=== PATIENT | female | born 2005 | race African-American/Black ===

== ENCOUNTER 2023-04-25 22:20 | Emergency (ER) | payer OTHER, SELFPAY ==
[2023-04-25 22:23] VITALS: BP 134/78; PULSE 77; RESP 17; TEMP 36.4; O2SAT 100
--- NOTE | 2023-04-25 23:20 | ED.FEMALEGU ---
HPI - Female Genitourinary General Chief complaint: Urogenital-Female Stated complaint: bumps on vaginal area Time Seen by Provider: 04/25/23 23:08 History of Present Illness HPI Narrative: 17-year-old female who is currently 21 weeks reports for evaluation of genital lesions that started today. Patient states 2 months ago she was treated for gonorrhea, chlamydia and trichomonas. When she reported back 1 month later to her [employer] [facility], she again tested positive for chlamydia, gonorrhea and syphilis. She reported taking all her medications as directed. She had an appointment with her [employer] [facility] today and had an ultrasound performed which showed no abnormalities of the fetus. States after her ultrasound appointment, she noticed spots to her labia that are painful when she wipes. She denies dysuria, urinary frequency or urgency, vaginal bleeding, abdominal pain or cramping, fever, body aches or chills, nausea or vomiting, diarrhea. Denies history of HSV. She reports she was tested again today for STDs at her [facility] [facility] [facility], she has not heard back yet regarding her results. Related Data Allergies Allergy/AdvReac Type Severity Reaction Status Date / Time No Known Allergies Allergy Verified 04/26/23 00:17 Review of Systems Review of Systems: CONSTITUTIONAL: Denies fever, chills EYES: Denies visual changes, redness, or discharge. ENT: Denies rhinorrhea, congestion, sore throat, or otalgia. CARDIOVASCULAR: Denies chest pain, palpitations, or edema. RESPIRATORY: Denies cough or dyspnea. GASTROINTESTINAL: Denies abdominal pain, nausea, vomiting, or diarrhea. GENITOURINARY: See HPI SKIN: Denies rash or itching. MUSCULOSKELETAL: Denies back pain, joint pain, or myalgia. NEUROLOGIC: Denies headache, numbness, dizziness, or weakness. PSYCHIATRIC: Denies anxiety or depression. Exam Narrative: GENERAL: Well-appearing, in no acute distress. HEAD: Normocephalic NECK: Supple. CHEST: No respiratory distress. Clear to auscultation, no adventitious breath sounds. HEART: Regular rate and rhythm. No murmur heard. Normal peripheral pulses. ABDOMEN: Soft, nontender, normal active bowel sounds. Gravid abdomen. : Multiple vesicles and shallow ulcerations to labia minora. No lesions to vaginal canal or cervix. Cervical Os closed. No CMT. EXTREMITIES: Normal range of motion. No edema. SKIN: Warm, dry, no rash. NEURO: No focal deficits. Alert and oriented x3. PSYCH: Normal mood and affect. Course Vital Signs Vital signs: Vital Signs Temperature 97.5 F L 04/25/23 22:23 Pulse Rate 77 04/25/23 22:23 Respiratory Rate 17 04/25/23 22:23 Blood Pressure 134/78 04/25/23 22:23 Pulse Oximetry 100 04/25/23 22:23 Oxygen Delivery Room Air 04/25/23 22:23 Temperature 97.7 F 04/26/23 00:30 Pulse Rate 67 04/26/23 00:30 Respiratory Rate 14 04/26/23 00:30 Blood Pressure 119/75 04/26/23 00:30 Pulse Oximetry 100 04/26/23 00:30 Oxygen Delivery Room Air 04/25/23 22:23 MDM - Female Genitourinary MDM Narrative Medical decision making narrative: 17-year-old female who is currently 21 weeks reports for evaluation of genital lesions that started today. She was seen by her [employer] [facility] earlier today and was tested for STDs, labs pending. Vital stable. Bedside ultrasound performed shows good movement, heart rate of 138. Exam reveals multiple vesicles and shallow ulcers to the labia minora consistent with HSV. Genital culture pending. First dose of acyclovir provided in the ED and acyclovir sent to pharmacy. Encouraged safe sex practices and advised patient to follow-up with her [employer] [facility] within the next 3 days for reevaluation and to follow-up regarding her STD tests. Strict ED return precautions discussed. Patient agrees with plan verbalized understanding. Discharged in stable condition. Medical Records Attestation: I reviewed the patient's medical records. Lab Data Attestation: I reviewed the patient
[2023-04-26] MEDS: ACYCLOVIR 400 MG TABLET PO (00:26)
[2023-04-26 00:30] VITALS: BP 119/75; PULSE 67; RESP 14; TEMP 36.5; O2SAT 100
== END 2023-04-26 00:42 | disposition home or self-care (01) ==
PROVIDERS: Emergency Provider Physician Assistant
DX: O98.312 Other infections with a predominantly sexual mode of transmission complicating pregnancy, second trimester (principal); A60.04 Herpesviral vulvovaginitis; Z3A.19 19 weeks gestation of pregnancy
CPT/HCPCS: 87070; 99284; A9270

== ENCOUNTER 2023-06-29 18:08 | Observation (INO) | payer OTHER, SELFPAY ==
[2023-06-29 19:52] VITALS: BMI 23.9
--- NOTE | 2023-06-29 19:52 | OBADM ---
This patient, Sanya Allen, admitted to the OB room OB Post 115 for observation. Patient/family oriented to hospital policies and general routines including ID bracelet, bed and alarms, visiting hours, pain management, procedures, bathroom and other care routines, personal items, smoking policy, room service/diet, and visiting hours. Patient/Family are encouraged to report perceived risks to care and to ask questions if they do not understand what they are told or what they should do.
[2023-06-29 20:01] LABS: Appearance Urine Turbid (Clear); Bacteria Urine Rare /hpf; Bilirubin Urine Negative (Negative); Blood Urine 3+ (Negative); Color Urine Yellow (Yellow); Glucose Urine UA Negative (Negative); Ketones Urine Negative (Negative); Leukocyte Esterase Ur 3+ LEU/UL (Negative); Need Manual Microscopic Reviewed; Nitrate Urine Negative (Negative); Non Pathogenic Casts 0-2; Protein Urine Trace mg/dL (Negative); Specific Grav Ur 1.007 (1.001-1.035); Squamous Epithelial Cell Urine Many /hpf (Few); Urobilinogen Urine 0.2 mg/dL (<2.0); WBC Urine >100 /hpf; pH Urine 6.5 (5.0-9.0)
[2023-06-29 20:04] LABS: Add Urine Microscopic? YES
[2023-06-29] MEDS: NITROFURANTOIN MONOHYD MACROCR 100 MG CAP PO (20:29)
--- NOTE | 2023-06-29 20:35 | PC.NURSE ---
Abby Craig notified of pt status, instructed to send urine. Abby Craig notified of pt status and lab results, instructed to discharge patient with prescription and precautions.
--- NOTE | 2023-06-29 20:37 | PC.NURSE ---
FHR 135, 15x15 accelerations noted, no decelerations, moderate variability, no contractions per patient or toco
--- NOTE | 2023-06-30 15:50 | PM.OBTRLD ---
OB - Triage/Final Diagnosis Visit Information Date of evaluation: 06/29/23 Reason for evaluation: other (spotting) Comments/Additional reasons for admission: I have assessed the risk for this patient, Sanya Allen, and determined that she would benefit from observation care. Evaluation Laboratory results: Laboratory Tests 06/29/23 19:38 Urine Color Yellow Urine Appearance Turbid H Urine pH 6.5 Ur Specific [place] 1.007 Urine Protein Trace Urine Glucose (UA) Negative Urine Ketones Negative Ur Blood (Man) 3+ H Urine Nitrate Negative Urine Bilirubin Negative Urine Urobilinogen 0.2 Add Ur Microanalysis Reviewed Leukocyte Esterase Rfl 3+ H Urine RBC 6-10 H Urine WBC >100 H Ur Squamous Epith Cells Many H Urine Bacteria Rare Urine Casts 0-2
== END 2023-06-29 20:33 | disposition home or self-care (01) ==
PROVIDERS: Advanced Practice Midwife; Admitting Provider Obstetrics & Gynecology; Visit Provider Obstetrics & Gynecology
DX: O26.853 Spotting complicating pregnancy, third trimester (principal); Z3A.30 30 weeks gestation of pregnancy
CPT/HCPCS: 81001; 87086; 87088; A9270; G0378; G0379

== ENCOUNTER 2023-07-30 14:40 | Inpatient (IN) | payer OTHER, SELFPAY ==
[2023-07-30] VITALS (118 sets, daily range): BP systolic 109–178; BP diastolic 59–116; PULSE 50–110; RESP 16–20; TEMP 36.6–36.9; O2SAT 77–100; BMI 24.7
--- NOTE | ~2023-07-30 | US_ITS ---
EXAMINATION: US OB follow up w [facility] DATE: 07/30/2023 15:56 INDICATION: Hypertension during third trimester . Assess biophysical profile, growth a nd amniotic fluid index. TECHNIQUE: Real-time pelvic ultrasound was performed. The interpreting radiologist was not present fo r the study. COMPARISON: None. FINDINGS: There is a single living fetus in vertex presentation. The placenta is anterior. heart rate is 131 beats per minute (bpm). Normal amniotic fluid index of 14.1 cm. The following biometric data were obtained: BPD: 9.1 cm -> 36 weeks 6 days Head circumference: 32.0 cm -> 36 weeks 0 days Abdominal circumference: 30.1 cm -> 34 weeks 1 days Femur length: 6.5 cm -> 33 weeks 2 days The femur length to biparietal diameter ratio is slightly below the 5th percentile. These measurements are otherwise concordant. Head circumference to abdominal circumference ratio: 1.06 (normal range 0.93-1.11). Estimated weight: 2404 g (+/-) 361 g, 5 lbs 5 oz (+/-) 13 oz Biophysical profile performed by the technologist: breathing (30 sec sustained breathing in 30 minutes): 2 out of 2 movement (3 gross body movements in 30 minutes): 2 out of 2 tone (one episode of kfwupgx-ftbwzgkny-kfeyhoc limb movement): 2 out of 2 Amniotic fluid pocket (2 cm): 2 out of 2 Total score: 8 out of 8 IMPRESSION: 1. Single living fetus in vertex presentation with heart rate of 131 bpm. 2. Biophysical profile 8 out of 8. 3. Normal amniotic fluid index of 14.1 cm. 4. Gestational age by ultrasound of 35 weeks 1 day(s) +/- 2 weeks and 3 days with ultrasound estimat ed date of delivery (CHHAYA) of 09/02/2023. Estimated weight is 28th percentile by Hadlock criteri a when 09/03/2023 is used as the CHHAYA. Please correlate with clinical information or earlier ultrasoun ds for most accurate CHHAYA. 5. Femur length to biparietal diameter ratio slightly below the 5th percentile. Reviewed, dictated and finalized at location A. IMPRESSION: 1. Single living fetus in vertex presentation with heart rate of 131 bpm. 2. Biophysical profile 8 out of 8. 3. Normal amniotic fluid index of 14.1 cm. 4. Gestational age by ultrasound of 35 weeks 1 day(s) +/- 2 weeks and 3 days w ith ultrasound estimated date of delivery (CHHAYA) of 09/02/2023. Estimated weight is 28th percentile by Hadlock criteria when 09/03/2023 is used as the ED D. Please correlate with clinical information or earlier ultrasounds for most a ccurate CHHAYA. 5. Femur length to biparietal diameter ratio slightly below the 5th percentile.
--- NOTE | 2023-07-30 12:41 | OBADM ---
This patient, Sanya Allen, admitted to the OB room OB Post 117 for observation. Patient/family oriented to hospital policies and general routines including ID bracelet, bed and alarms, visiting hours, pain management, procedures, bathroom and other care routines, personal items, smoking policy, room service/diet, and visiting hours. Patient/Family are encouraged to report perceived risks to care and to ask questions if they do not understand what they are told or what they should do.
--- NOTE | 2023-07-30 13:00 | PC.NURSE ---
pt report taking her blood pressure today and being 153/112 at home. Pt also reports headache on and off the last few days. Pt denies blurred vision, pt denies noticing new swelling but states that her mother told her that her face looks more swollen than normal.
--- NOTE | 2023-07-30 13:18 | PC.NURSE ---
Dr Ramírez notified of pt arrival and blood pressures reported. Order received for 200mg PO Labetalol x1. Lab currently pending.
[2023-07-30 13:20] LABS: Basophils Percent Auto 0.2 % (0.2-1.2); Eosinophils Absolute Auto 0.1 K/mm3 (0-0.3); Eosinophils Percent Auto 0.7 % (0-4.4); Hemoglobin 11.6 g/dL (12.0-15.0); Immature Granulocyte Absolute 0.04 K/mm3 (0.00-0.031); Immature Granulocyte Percent A 0.5 % (0-0.5); Lymphocytes Absolute Auto 1.46 K/mm3 (0.9-3.2); Lymphocytes Percent Auto 17.8 % (18.3-44.2); Mean Corpuscular HGB Conc 32.2 g/dl (32-36); Mean Corpuscular Hemoglobin 30.1 pg (26-34); Mean Corpuscular Volume 93.5 fl (80-100); Monocytes Absolute Auto 1.2 K/mm3 (0.1-0.6); Neutrophils Absolute Auto 5.5 K/mm3 (1.3-6.7); Neutrophils Percent Auto 66.8 % (45.5-73.1); Platelet Count Result 315 k/mm3 (150-375); Red Blood Count 3.85 M/mm3 (4.2-5.4); Red Cell Distribution Width 14.5 % (11.5-14.5); White Blood Count 8.2 K/mm3 (4.5-10.0)
[2023-07-30 13:23] LABS: Appearance Urine Clear (Clear); Bacteria Urine None Seen /hpf; Bilirubin Urine Negative (Negative); Blood Urine Negative (Negative); Color Urine Yellow (Yellow); Glucose Urine UA Negative (Negative); Ketones Urine Negative (Negative); Leukocyte Esterase Ur 3+ LEU/UL (NEGATIVE); Nitrate Urine Negative (Negative); Non Pathogenic Casts 0-2; Protein Urine Negative (Negative); RBC Urine 0-2 /hpf (0-2); Specific Grav Ur 1.011 (1.001-1.035); Squamous Epithelial Cell Urine Few /hpf (Few)
[2023-07-30 13:25] LABS: Alanine Aminotransferase 17 U/L (6-35); Albumin Level 3.7 g/dL (3.7-5.6); Alkaline Phosphatase 157 U/L (45-116); Anion Gap 4 mmol/L (8-16); Aspartate Amino Transferase 21 U/L (14-36); Bilirubin,Total 0.4 mg/dL (0.2-1.3); Blood Urea Nitrogen 9 mg/dL (8-21); Calcium 8.8 mg/dL (8.9-10.7); Carbon Dioxide 26 mmol/L (22-30); Chloride 105 mmol/L (98-107); Estimated Glomerular Filt Rate > 60; Glucose 76 mg/dL (65-110); Potassium 3.9 mmol/L (3.4-5.0); Sodium 135 mmol/L (134-143); Uric Acid 6.1 mg/dL (3.0-5.9)
[2023-07-30] MEDS: LABETALOL HCL 100 MG TABLET 200 MG PO ×2 (13:26→14:32)
[2023-07-30 13:28] LABS: Add Urine Microscopic? YES; Creatinine Urine 120.6 mg/dL; Total Protein Urine Random 12 mg/dL
--- NOTE | 2023-07-30 14:32 | PM.IMHP ---
H&P: HPI History of Present Illness Date/Time: 07/30/23 14:32 Chief Complaint: Headache, elevated blood pressures Narrative: 17-year-old 1 at 34 weeks gestation who presented for elevated blood pressures. She is found to have markedly elevated blood pressures. Treatment was initiated. She was noticed in the office the other day to begin to have elevated pressures. Her face looks different. She did not report any increased swelling in her lower extremities. She reports good movement. There is a reassuring status. For labetalol was started orally. We are going to give her 20 mg dose labetalol IV and also an additional 200 of oral labetalol. Going to consider our ultrasound the baby for growth restriction associated with blood pressure concern. Laboratory evaluation is normal. PCR ratio was normal. Continue observation consider disposition after a lengthy period of observation. Review of Systems Review of Systems: All systems reviewed & are unremarkable except as noted in HPI and below Constitutional: Constitutional: Denies chills, Denies fatigue, Denies fever(s) and Denies weakness Eyes: Eyes: Denies blurry vision, Denies change in vision, Denies loss of peripheral vision, Denies loss of vision, Denies other visual disturbances and Denies eye pain ENT: Denies vertigo, Denies dizziness, Denies hearing loss, Denies mouth pain, Denies nasal obstruction, Denies neck mass and Denies neck pain Cardiovascular: Cardiovascular: Denies chest pain, Denies diaphoresis, Denies syncope, Denies leg edema and Denies dyspnea Respiratory: Respiratory: Denies chest congestion, Denies cough, Denies hemoptysis, Denies dyspnea and Denies wheezing Gastrointestinal: Gastrointestinal: Denies abdominal pain, Denies constipation, Denies diarrhea, Denies nausea and Denies vomiting Genitourinary: Genitourinary: Denies hematuria, Denies change in libido, Denies nocturia, Denies genital lesions, Denies flank pain and Denies urinary urgency Musculoskeletal: Musculoskeletal: Denies abnormal gait, Denies back pain, Denies myalgias, Denies arthralgias, Denies joint swelling, Denies muscle weakness and Denies neck pain Integumentary/Breasts: Skin/Breast: Denies swelling, Denies breast pain, Denies breast mass, Denies dry skin, Denies nipple discharge, Denies unusual bruising and Denies jaundice Neurologic: Denies Neuro-related abnormal movements, Denies Abnormal speech present, Denies abnormal gait, Denies behavioral changes, Denies confusion, Denies vertigo, Denies dizziness, Denies syncope, Denies loss of vision, Denies memory loss, Denies convulsions and Denies weakness Psychiatric: Psychiatric: Denies abnormal sleep pattern, Denies behavioral changes, Denies change in libido, Denies confusion, Denies depression, Denies anhedonia and Denies memory loss Endocrine: Endocrine: Reports no additional endocrine complaints, Denies change in libido and Denies fatigue Hematologic/Lymphatic: Hematologic/Lymphatic: Reports no additional hematologic/lymphatic complaints Allergic/Immunologic: Allergic/Immunologic: Reports no additional allergic/immunologic complaints and Denies wheezing Meds Home Medications and Allergies Home Medications Medication Instructions Recorded Confirmed Type nitrofurantoin 100 mg PO BID #14 caps 06/29/23 Rx monohydrate/macrocrystals 100 mg capsule (Macrobid) Allergies Allergy/AdvReac Type Severity Reaction Status Date / Time No Known Allergies Allergy Verified 04/26/23 00:17 Vital Signs Vital Signs - 24 hr 07/30/23 13:10 07/30/23 13:16 07/30/23 13:31 Pulse Rate 52 L 50 L 52 L Blood Pressure 166/113 H 163/108 H 161/106 H 07/30/23 13:46 07/30/23 14:01 07/30/23 14:16 Pulse Rate 56 L 54 L 70 Blood Pressure 168/103 H 178/105 H 151/101 H 07/30/23 14:31 07/30/23 13:26 Pulse Rate 62 50 L Blood Pressure 173/116 H Exam Const: General: cooperative, healthy appearing, comfortabl
[2023-07-30] MEDS: BETAMETHASONE SOD PHOS/ACETATE 30 MG/5 ML VIAL 12 MG IM (14:40)
[2023-07-30] MEDS: LACTATED RINGERS 1,000 ML 75 ML IV CONT (15:00)
[2023-07-30] MEDS: MAGNESIUM SULF 4 GM/WATER100ML 4 GM/100 ML BAG IVPB (15:01)
[2023-07-30] MEDS: LABETALOL HCL INJ 100 MG/20 ML VIAL 20 MG IV PUSH (15:04)
[2023-07-30] MEDS: MAGNESIUM SULF 20GM/WATER500ML 500 ML 50 MG IV CONT (15:34)
[2023-07-30 21:23] LABS: Basophils Percent Auto 0.2 % (0.2-1.2); Hematocrit 32.8 % (37.0-47.0); Hemoglobin 10.8 g/dL (12.0-15.0); Immature Granulocyte Absolute 0.09 K/mm3 (0.00-0.031); Immature Granulocyte Percent A 0.7 % (0-0.5); Lymphocytes Absolute Auto 0.77 K/mm3 (0.9-3.2); Lymphocytes Percent Auto 6.2 % (18.3-44.2); Mean Corpuscular HGB Conc 32.9 g/dl (32-36); Mean Corpuscular Hemoglobin 30.1 pg (26-34); Mean Corpuscular Volume 91.4 fl (80-100); Mean Platelet Volume 10.7 fl (7.4-10.4); Monocytes Absolute Auto 0.2 K/mm3 (0.1-0.6); Monocytes Percent Auto 1.4 % (2.6-8.5); Neutrophils Absolute Auto 11.5 K/mm3 (1.3-6.7); Neutrophils Percent Auto 91.5 % (45.5-73.1); Platelet Count Result 292 k/mm3 (150-375); Red Blood Count 3.59 M/mm3 (4.2-5.4); Red Cell Distribution Width 14.3 % (11.5-14.5); White Blood Count 12.5 K/mm3 (4.5-10.0)
[2023-07-30 21:39] LABS: Alanine Aminotransferase 18 U/L (6-35); Albumin Level 3.4 g/dL (3.7-5.6); Alkaline Phosphatase 162 U/L (45-116); Anion Gap 8 mmol/L (8-16); Aspartate Amino Transferase 19 U/L (14-36); Bilirubin,Total 0.2 mg/dL (0.2-1.3); Blood Urea Nitrogen 8 mg/dL (8-21); Calcium 8.1 mg/dL (8.9-10.7); Carbon Dioxide 22 mmol/L (22-30); Chloride 104 mmol/L (98-107); Estimated CRCL calculation 102 ml/min; Estimated Glomerular Filt Rate > 60; Glucose 102 mg/dL (65-110); Potassium 3.5 mmol/L (3.4-5.0); Sodium 134 mmol/L (134-143)
[2023-07-30 21:50] LABS: Uric Acid 6.6 mg/dL (3.0-5.9)
[2023-07-31] VITALS (320 sets, daily range): BP systolic 114–144; BP diastolic 59–106; PULSE 79–148; RESP 17; TEMP 36.3–36.6; O2SAT 70–100
[2023-07-31] MEDS: LABETALOL HCL 100 MG TABLET 400 MG PO ×3 (00:29→21:24)
[2023-07-31] MEDS: MAGNESIUM SULF 20GM/WATER500ML 500 ML 50 MG IV CONT ×2 (02:30→14:42)
[2023-07-31] MEDS: LACTATED RINGERS 1,000 ML 75 ML IV CONT ×2 (02:30→15:53)
--- NOTE | 2023-07-31 07:54 | PM.OBPNVD ---
OB - PN: Subj Subjective Date/time seen: 07/31/23 07:54 Interval history: Denies headache, blurry vision, epigastric pain. Denies onset of marked swelling / edema. Patient's family has noticed her face is more swollen. OB - PN: Obj Data Labs 07/30/23 21:07 07/30/23 21:07 Labs: Laboratory Results - last 24 hr 07/30/23 07/30/23 13:07 21:07 WBC 8.2 12.5 H RBC 3.85 L 3.59 L Hgb 11.6 L 10.8 L Hct 36.0 L 32.8 L MCV 93.5 91.4 MCH 30.1 30.1 MCHC 32.2 32.9 RDW 14.5 14.3 Plt Count 315 292 MPV 11.0 H 10.7 H Immature Gran % (Auto) 0.5 0.7 H Neut % (Auto) 66.8 91.5 H Lymph % (Auto) 17.8 L 6.2 L [place] % (Auto) 14.0 H 1.4 L Eos % (Auto) 0.7 0.0 Baso % (Auto) 0.2 0.2 Lymph # (Auto) 1.46 0.77 L [place] # (Auto) 1.2 H 0.2 Eos # (Auto) 0.1 0.0 Baso # (Auto) 0.0 0.0 Abs Immat Gran (auto) 0.04 H 0.09 H Absolute Neuts (auto) 5.5 11.5 H Absolute Nucleated RBC 0.0 0.0 Nucleated RBC % 0.0 0.0 Sodium 135 134 Potassium 3.9 3.5 Chloride 105 104 Carbon Dioxide 26 22 Anion Gap 4 L 8 BUN 9 8 Creatinine 0.90 0.90 Estim Creat Clear Calc Not Reportable 102 Estimated GFR > 60 > 60 Glucose 76 102 Uric Acid 6.1 H 6.6 H Calcium 8.8 L 8.1 L Total Bilirubin 0.4 0.2 AST 21 19 ALT 17 18 Alkaline Phosphatase 157 H 162 H Total Protein 7.0 7.0 Albumin 3.7 3.4 L Urine Color Yellow Urine Appearance Clear Urine pH 7.0 Ur Specific [place] 1.011 Urine Protein Negative Urine Glucose (UA) Negative Urine Ketones Negative Ur Blood (Man) Negative Urine Nitrate Negative Urine Bilirubin Negative Urine Urobilinogen 1.0 Ur Leukocyte Esterase 3+ H Urine RBC 0-2 Urine WBC 11-20 H Ur Squamous Epith Cells Few Urine Bacteria None seen Urine Casts 0-2 U Random Total Protein 12 Urine Creatinine 120.6 Protein/Creat Ratio 2 0.10 Imaging Radiologist's impression: Impressions Obstetrical Follow-Up 07/30/23 16:01 IMPRESSION: 1. Single living fetus in vertex presentation with heart rate of 131 bpm. 2. Biophysical profile 8 out of 8. 3. Normal amniotic fluid index of 14.1 cm. 4. Gestational age by ultrasound of 35 weeks 1 day(s) +/- 2 weeks and 3 days with ultrasound estimated date of delivery (CHHAYA) of 09/02/2023. Estimated weight is 28th percentile by Hadlock criteria when 09/03/2023 is used as the CHHAYA. Please correlate with clinical information or earlier ultrasounds for most accurate CHHAYA. 5. Femur length to biparietal diameter ratio slightly below the 5th percentile. OB - PN A/P Assessment and Plan (1) Gestational hypertension: Code(s): O13.9 - Gestational [-induced] hypertension without significant proteinuria, unspecified trimester Status: Acute Plan Comments: Thirty-four week gestation, 1, likely preeclampsia. Pressure is controlled with magnesium sulfate 400 of labetalol. We will continue with current treatment with Mag and labetalol. Consider delivery tomorrow, withdrawal magnesium sulfate tomorrow, observe pressures. Second dose of steroids today. Serial labs. Time Spent With Patient Time: Total time spent is greater than 50% in coordination of care (as documented) at patient's floor/unit and/or counseling patient: Review of Systems Review of Systems: All systems reviewed & are unremarkable except as noted in HPI and below Constitutional: Constitutional: Denies chills, Denies fatigue, Denies fever(s) and Denies weakness Eyes: Eyes: Denies blurry vision, Denies change in vision, Denies loss of peripheral vision, Denies loss of vision, Denies other visual disturbances and Denies eye pain ENT: Denies vertigo, Denies dizziness, Denies hearing loss, Denies mouth pain, Denies nasal obstruction, Denies neck mass and Denies neck pain Cardiovascular: Cardiovascular: Denies chest pain, Denies diaphoresis, Denies syncope, Denies leg tacos
[2023-07-31 08:46] LABS: Basophils Percent Auto 0.1 % (0.2-1.2); Hemoglobin 10.6 g/dL (12.0-15.0); Immature Granulocyte Absolute 0.11 K/mm3 (0.00-0.031); Immature Granulocyte Percent A 0.7 % (0-0.5); Lymphocytes Absolute Auto 1.12 K/mm3 (0.9-3.2); Lymphocytes Percent Auto 7.2 % (18.3-44.2); Mean Corpuscular HGB Conc 33.1 g/dl (32-36); Mean Corpuscular Hemoglobin 30.4 pg (26-34); Mean Corpuscular Volume 91.7 fl (80-100); Monocytes Percent Auto 6.2 % (2.6-8.5); Neutrophils Absolute Auto 13.4 K/mm3 (1.3-6.7); Neutrophils Percent Auto 85.8 % (45.5-73.1); Platelet Count Result 310 k/mm3 (150-375); Red Blood Count 3.49 M/mm3 (4.2-5.4); Red Cell Distribution Width 14.3 % (11.5-14.5); White Blood Count 15.6 K/mm3 (4.5-10.0)
[2023-07-31 09:02] LABS: Alanine Aminotransferase 18 U/L (6-35); Albumin Level 3.5 g/dL (3.7-5.6); Alkaline Phosphatase 175 U/L (45-116); Anion Gap 7 mmol/L (8-16); Aspartate Amino Transferase 22 U/L (14-36); Bilirubin,Total 0.3 mg/dL (0.2-1.3); Blood Urea Nitrogen 7 mg/dL (8-21); Calcium 7.6 mg/dL (8.9-10.7); Carbon Dioxide 21 mmol/L (22-30); Chloride 104 mmol/L (98-107); Estimated CRCL calculation 114 ml/min; Estimated Glomerular Filt Rate > 60; Glucose 91 mg/dL (65-110); Sodium 132 mmol/L (134-143); Uric Acid 6.8 mg/dL (3.0-5.9)
--- NOTE | 2023-07-31 09:31 | PC.NURSE ---
Dr. Ramírez updated on current labs and blood pressures. Order received to give pt her scheduled blood pressure medication. Order received to redraw labs and 8 hours and call with 24hour urine labs.
[2023-07-31] MEDS: BETAMETHASONE SOD PHOS/ACETATE 30 MG/5 ML VIAL 12 MG IM (14:38)
[2023-07-31 15:20] LABS: Total Volume 24 Hour Urine 3250 ml
[2023-07-31 15:21] LABS: Total Volume 24 Hour Urine 3250 ml
[2023-07-31 15:33] LABS: Total Protein Urine Random 18 mg/dL
[2023-07-31 15:35] LABS: Creatinine 24 Hour Urine 1.6 gm/24 (0.8-1.8); Creatinine Urine 49.5 mg/dL
[2023-07-31 15:40] LABS: Total Protein Urine 24 Hr 585 mg/24hr (28-141)
[2023-07-31 16:22] LABS: Basophils Percent Auto 0.1 % (0.2-1.2); Hematocrit 27.5 % (37.0-47.0); Hemoglobin 9.1 g/dL (12.0-15.0); Immature Granulocyte Absolute 0.09 K/mm3 (0.00-0.031); Immature Granulocyte Percent A 0.6 % (0-0.5); Lymphocytes Absolute Auto 1.12 K/mm3 (0.9-3.2); Lymphocytes Percent Auto 6.9 % (18.3-44.2); Mean Corpuscular HGB Conc 33.1 g/dl (32-36); Mean Corpuscular Hemoglobin 30.6 pg (26-34); Mean Corpuscular Volume 92.6 fl (80-100); Mean Platelet Volume 10.9 fl (7.4-10.4); Monocytes Absolute Auto 2.1 K/mm3 (0.1-0.6); Monocytes Percent Auto 12.9 % (2.6-8.5); Neutrophils Absolute Auto 12.9 K/mm3 (1.3-6.7); Neutrophils Percent Auto 79.5 % (45.5-73.1); Platelet Count Result 282 k/mm3 (150-375); Red Blood Count 2.97 M/mm3 (4.2-5.4); Red Cell Distribution Width 14.8 % (11.5-14.5); White Blood Count 16.2 K/mm3 (4.5-10.0)
[2023-07-31 16:32] LABS: Alanine Aminotransferase 16 U/L (6-35); Albumin Level 3.1 g/dL (3.7-5.6); Alkaline Phosphatase 136 U/L (45-116); Anion Gap 4 mmol/L (8-16); Aspartate Amino Transferase 20 U/L (14-36); Bilirubin,Total 0.2 mg/dL (0.2-1.3); Blood Urea Nitrogen 8 mg/dL (8-21); Calcium 7.1 mg/dL (8.9-10.7); Carbon Dioxide 23 mmol/L (22-30); Chloride 105 mmol/L (98-107); Estimated CRCL calculation 102 ml/min; Estimated Glomerular Filt Rate > 60; Glucose 102 mg/dL (65-110); Potassium 3.7 mmol/L (3.4-5.0); Sodium 132 mmol/L (134-143)
--- NOTE | 2023-07-31 18:41 | LDADM ---
This patient, Sanya Allen, was admitted to Labor/Delivery/Recovery 103 on 07/31/23 at 17:30. Plans for labor, pain management and were discussed with patient. Patient/family oriented to hospital policies and general routines including ID bracelet, bed and alarms, visiting hours, pain management, procedures, bathroom and other care routines, personal items, smoking policy, room service/diet and guest tray routines, security routines, and visiting hours. Patient/Family are encouraged to report perceived risks to care and to ask questions if they do not understand what they are told or what they should do. See OBIX for further documentation.
[2023-07-31] MEDS: AMPICILLIN 2 GM/NS 100 ML 2 GM/100 ML BAG IVPB (19:05)
[2023-07-31] MEDS: DINOPROSTONE 10 MG VAG INSERT VAGINAL (19:13)
[2023-07-31 19:33] LABS: Trichomonas Vag PCR DETECTED (NOT DETECTE)
--- NOTE | 2023-07-31 20:50 | PC.NURSE ---
2030- Dr. Ramírez called and updated on pts positive trich result. Order received to begin abx, swab for gonorrhea and chlamydia. 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 No new orders received.
[2023-07-31] MEDS: metroNIDAZOLE 250 MG TABLET 2000 MG PO (21:25)
[2023-07-31] MEDS: AMPICILLIN 1 GM/NS 50 ML 1 GM/50 ML BAG IVPB (23:23)
[2023-07-31 23:44] LABS: Chlamydia trachomatis DETECTED (NOT DETECTE); Neisseria gonorrhoeae PCR NOT DETECTED (NOT DETECTE)
[2023-08-01] VITALS (268 sets, daily range): BP systolic 109–159; BP diastolic 64–117; PULSE 65–129; RESP 18–20; TEMP 36.6–37.2; O2SAT 92–100
[2023-08-01 00:20] LABS: Basophils Percent Auto 0.2 % (0.2-1.2); Hematocrit 30.3 % (37.0-47.0); Hemoglobin 9.9 g/dL (12.0-15.0); Immature Granulocyte Absolute 0.13 K/mm3 (0.00-0.031); Immature Granulocyte Percent A 0.8 % (0-0.5); Lymphocytes Absolute Auto 0.74 K/mm3 (0.9-3.2); Lymphocytes Percent Auto 4.8 % (18.3-44.2); Mean Corpuscular HGB Conc 32.7 g/dl (32-36); Mean Corpuscular Hemoglobin 30.5 pg (26-34); Mean Corpuscular Volume 93.2 fl (80-100); Monocytes Absolute Auto 0.7 K/mm3 (0.1-0.6); Monocytes Percent Auto 4.6 % (2.6-8.5); Neutrophils Absolute Auto 13.9 K/mm3 (1.3-6.7); Neutrophils Percent Auto 89.6 % (45.5-73.1); Platelet Count Result 304 k/mm3 (150-375); Red Blood Count 3.25 M/mm3 (4.2-5.4); Red Cell Distribution Width 14.9 % (11.5-14.5); White Blood Count 15.5 K/mm3 (4.5-10.0)
[2023-08-01 00:36] LABS: Alanine Aminotransferase 17 U/L (6-35); Albumin Level 3.3 g/dL (3.7-5.6); Alkaline Phosphatase 155 U/L (45-116); Anion Gap 6 mmol/L (8-16); Aspartate Amino Transferase 22 U/L (14-36); Bilirubin,Total 0.2 mg/dL (0.2-1.3); Blood Urea Nitrogen 8 mg/dL (8-21); Calcium 6.9 mg/dL (8.9-10.7); Carbon Dioxide 22 mmol/L (22-30); Chloride 107 mmol/L (98-107); Estimated CRCL calculation 102 ml/min; Estimated Glomerular Filt Rate > 60; Glucose 113 mg/dL (65-110); Magnesium 6.8 mg/dL (1.6-2.3); Potassium 3.9 mmol/L (3.4-5.0); Sodium 135 mmol/L (134-143)
[2023-08-01] MEDS: MAGNESIUM SULF 20GM/WATER500ML 500 ML 50 MG IV CONT ×3 (01:30→21:02)
[2023-08-01] MEDS: DINOPROSTONE 10 MG VAG INSERT VAGINAL (01:40)
[2023-08-01] MEDS: AMPICILLIN 1 GM/NS 50 ML 1 GM/50 ML BAG IVPB ×3 (03:05→11:16)
[2023-08-01] MEDS: LACTATED RINGERS 1,000 ML 75 ML IV CONT ×2 (05:17→14:39)
--- NOTE | 2023-08-01 08:40 | PM.OBPNVD ---
OB - PN: Subj Subjective Date/time seen: 08/01/23 08:40 Interval history: Denies headache, blurry vision, epigastric pain. Denies onset of marked swelling / edema. Patient's family has noticed her face is more swollen. OB - PN: Obj Data Labs 08/01/23 00:02 08/01/23 00:02 Labs: Laboratory Results - last 24 hr 07/30/23 07/30/23 07/31/23 14:58 14:58 08:19 WBC 15.6 H RBC 3.49 L Hgb 10.6 L Hct 32.0 L MCV 91.7 MCH 30.4 MCHC 33.1 RDW 14.3 Plt Count 310 MPV 11.0 H Immature Gran % (Auto) 0.7 H Neut % (Auto) 85.8 H Lymph % (Auto) 7.2 L [place] % (Auto) 6.2 Eos % (Auto) 0.0 Baso % (Auto) 0.1 L Lymph # (Auto) 1.12 [place] # (Auto) 1.0 H Eos # (Auto) 0.0 Baso # (Auto) 0.0 Abs Immat Gran (auto) 0.11 H Absolute Neuts (auto) 13.4 H Absolute Nucleated RBC 0.0 Nucleated RBC % 0.0 Sodium 132 L Potassium 4.0 Chloride 104 Carbon Dioxide 21 L Anion Gap 7 L BUN 7 L Creatinine 0.80 Estim Creat Clear Calc 114 Estimated GFR > 60 Glucose 91 Uric Acid 6.8 H Calcium 7.6 L Magnesium Total Bilirubin 0.3 AST 22 ALT 18 Alkaline Phosphatase 175 H Total Protein 7.0 Albumin 3.5 L U Random Total Protein 18 Ur 24 Hour Volume 3250 3250 Urine Creatinine 49.5 Ur Creatinine 24 Hour 1.6 Ur Total Protein 24 Hr 585 H RPR C. trachomatis (PCR) N. gonorrhoeae (PCR) T. vaginalis (PCR) Blood Type Antibody Screen 07/31/23 07/31/23 07/31/23 16:00 18:18 18:19 WBC 16.2 H RBC 2.97 L Hgb 9.1 L Hct 27.5 L MCV 92.6 MCH 30.6 MCHC 33.1 RDW 14.8 H Plt Count 282 MPV 10.9 H Immature Gran % (Auto) 0.6 H Neut % (Auto) 79.5 H Lymph % (Auto) 6.9 L [place] % (Auto) 12.9 H Eos % (Auto) 0.0 Baso % (Auto) 0.1 L Lymph # (Auto) 1.12 [place] # (Auto) 2.1 H Eos # (Auto) 0.0 Baso # (Auto) 0.0 Abs Immat Gran (auto) 0.09 H Absolute Neuts (auto) 12.9 H Absolute Nucleated RBC 0.0 Nucleated RBC % 0.0 Sodium 132 L Potassium 3.7 Chloride 105 Carbon Dioxide 23 Anion Gap 4 L BUN 8 Creatinine 0.90 Estim Creat Clear Calc 102 Estimated GFR > 60 Glucose 102 Uric Acid 7.0 H Calcium 7.1 L Magnesium Total Bilirubin 0.2 AST 20 ALT 16 Alkaline Phosphatase 136 H Total Protein 6.0 L Albumin 3.1 L U Random Total Protein Ur 24 Hour Volume Urine Creatinine Ur Creatinine 24 Hour Ur Total Protein 24 Hr RPR Non-reactive C. trachomatis (PCR) Detected A N. gonorrhoeae (PCR) Not detected T. vaginalis (PCR) Detected A Blood Type A Positive Antibody Screen Negative 08/01/23 00:02 WBC 15.5 H RBC 3.25 L Hgb 9.9 L Hct 30.3 L MCV 93.2 MCH 30.5 MCHC 32.7 RDW 14.9 H Plt Count 304 MPV 11.0 H Immature Gran % (Auto) 0.8 H Neut % (Auto) 89.6 H Lymph % (Auto) 4.8 L [place] % (Auto) 4.6 Eos % (Auto) 0.0 Baso % (Auto) 0.2 Lymph # (Auto) 0.74 L [place] # (Auto) 0.7 H Eos # (Auto) 0.0 Baso # (Auto) 0.0 Abs Immat Gran (auto) 0.13 H Absolute Neuts (auto) 13.9 H Absolute Nucleated RBC 0.0 Nucleated RBC % 0.0 Sodium 135 Potassium 3.9 Chloride 107 Carbon Dioxide 22 Anion Gap 6 L BUN 8 Creatinine 0.90 Estim Creat Clear Calc 102 Estimated GFR > 60 Glucose 113 H Uric Acid 7.0 H Calcium 6.9 L Magnesium 6.8 H Total Bilirubin 0.2 AST 22 ALT 17 Alkaline Phosphatase 155 H Total Protein 7.0 Albumin 3.3 L U Random Total Protein Ur 24 Hour Volume Urine Creatinine Ur Creatinine 24 Hour Ur Total Protein 24 Hr RPR C. trachomatis (PCR) N. gonorrhoeae (PCR) T. vaginalis (PCR) Blood Type Antibody Screen OB - PN A/P Assessment and Plan (1) Chlamydia: Code(s): A74.9 - Chlamydial infection, unspecified Status: Acute (2) Preeclampsia, severe: Code(s):
[2023-08-01 08:42] LABS: Basophils Percent Auto 0.1 % (0.2-1.2); Hematocrit 32.3 % (37.0-47.0); Hemoglobin 10.4 g/dL (12.0-15.0); Immature Granulocyte Absolute 0.15 K/mm3 (0.00-0.031); Immature Granulocyte Percent A 0.8 % (0-0.5); Lymphocytes Absolute Auto 0.95 K/mm3 (0.9-3.2); Lymphocytes Percent Auto 5.3 % (18.3-44.2); Mean Corpuscular HGB Conc 32.2 g/dl (32-36); Mean Corpuscular Hemoglobin 30.1 pg (26-34); Mean Corpuscular Volume 93.4 fl (80-100); Mean Platelet Volume 10.5 fl (7.4-10.4); Monocytes Absolute Auto 1.5 K/mm3 (0.1-0.6); Monocytes Percent Auto 8.3 % (2.6-8.5); Neutrophils Absolute Auto 15.4 K/mm3 (1.3-6.7); Neutrophils Percent Auto 85.5 % (45.5-73.1); Platelet Count Result 316 k/mm3 (150-375); Red Blood Count 3.46 M/mm3 (4.2-5.4)
[2023-08-01 08:53] LABS: Alanine Aminotransferase 19 U/L (6-35); Albumin Level 3.6 g/dL (3.7-5.6); Alkaline Phosphatase 166 U/L (45-116); Anion Gap 6 mmol/L (8-16); Aspartate Amino Transferase 24 U/L (14-36); Bilirubin,Total 0.3 mg/dL (0.2-1.3); Blood Urea Nitrogen 8 mg/dL (8-21); Calcium 6.9 mg/dL (8.9-10.7); Carbon Dioxide 23 mmol/L (22-30); Chloride 106 mmol/L (98-107); Estimated CRCL calculation 102 ml/min; Estimated Glomerular Filt Rate > 60; Glucose 97 mg/dL (65-110); Magnesium 7.4 mg/dL (1.6-2.3); Potassium 3.9 mmol/L (3.4-5.0); Sodium 135 mmol/L (134-143); Uric Acid 7.1 mg/dL (3.0-5.9)
[2023-08-01] MEDS: AZITHROMYCIN 500 MG/NS 250 ML 500 MG/250 ML BAG 250 MG IVPB ×2 (09:06→10:08)
[2023-08-01] MEDS: OXYTOCIN 30 UNITS/NS 500 ML 30 UNITS/500 ML BAG 6 UNITS IV CONT (09:11)
[2023-08-01] MEDS: LABETALOL HCL 100 MG TABLET 400 MG PO ×2 (09:13→21:02)
[2023-08-01] MEDS: ONDANSETRON INJ 4 MG/2 ML VIAL IV PUSH (10:12)
--- NOTE | 2023-08-01 13:28 | PM.OBPNVD ---
OB - PN: Subj Subjective Date/time seen: 08/01/23 13:28 AROM preformed - clear fluid, 3-4/90/0. reassuring FHT's Interval history: Denies headache, blurry vision, epigastric pain. Denies onset of marked swelling / edema. Patient's family has noticed her face is more swollen. OB - PN: Obj Data Labs 08/01/23 08:36 08/01/23 08:36 Labs: Laboratory Results - last 24 hr 07/30/23 07/30/23 07/31/23 14:58 14:58 16:00 WBC 16.2 H RBC 2.97 L Hgb 9.1 L Hct 27.5 L MCV 92.6 MCH 30.6 MCHC 33.1 RDW 14.8 H Plt Count 282 MPV 10.9 H Immature Gran % (Auto) 0.6 H Neut % (Auto) 79.5 H Lymph % (Auto) 6.9 L [place] % (Auto) 12.9 H Eos % (Auto) 0.0 Baso % (Auto) 0.1 L Lymph # (Auto) 1.12 [place] # (Auto) 2.1 H Eos # (Auto) 0.0 Baso # (Auto) 0.0 Abs Immat Gran (auto) 0.09 H Absolute Neuts (auto) 12.9 H Absolute Nucleated RBC 0.0 Nucleated RBC % 0.0 Sodium 132 L Potassium 3.7 Chloride 105 Carbon Dioxide 23 Anion Gap 4 L BUN 8 Creatinine 0.90 Estim Creat Clear Calc 102 Estimated GFR > 60 Glucose 102 Uric Acid 7.0 H Calcium 7.1 L Magnesium Total Bilirubin 0.2 AST 20 ALT 16 Alkaline Phosphatase 136 H Total Protein 6.0 L Albumin 3.1 L U Random Total Protein 18 Ur 24 Hour Volume 3250 3250 Urine Creatinine 49.5 Ur Creatinine 24 Hour 1.6 Ur Total Protein 24 Hr 585 H RPR C. trachomatis (PCR) N. gonorrhoeae (PCR) T. vaginalis (PCR) Blood Type Antibody Screen 07/31/23 07/31/23 08/01/23 18:18 18:19 00:02 WBC 15.5 H RBC 3.25 L Hgb 9.9 L Hct 30.3 L MCV 93.2 MCH 30.5 MCHC 32.7 RDW 14.9 H Plt Count 304 MPV 11.0 H Immature Gran % (Auto) 0.8 H Neut % (Auto) 89.6 H Lymph % (Auto) 4.8 L [place] % (Auto) 4.6 Eos % (Auto) 0.0 Baso % (Auto) 0.2 Lymph # (Auto) 0.74 L [place] # (Auto) 0.7 H Eos # (Auto) 0.0 Baso # (Auto) 0.0 Abs Immat Gran (auto) 0.13 H Absolute Neuts (auto) 13.9 H Absolute Nucleated RBC 0.0 Nucleated RBC % 0.0 Sodium 135 Potassium 3.9 Chloride 107 Carbon Dioxide 22 Anion Gap 6 L BUN 8 Creatinine 0.90 Estim Creat Clear Calc 102 Estimated GFR > 60 Glucose 113 H Uric Acid 7.0 H Calcium 6.9 L Magnesium 6.8 H Total Bilirubin 0.2 AST 22 ALT 17 Alkaline Phosphatase 155 H Total Protein 7.0 Albumin 3.3 L U Random Total Protein Ur 24 Hour Volume Urine Creatinine Ur Creatinine 24 Hour Ur Total Protein 24 Hr RPR Non-reactive C. trachomatis (PCR) Detected A N. gonorrhoeae (PCR) Not detected T. vaginalis (PCR) Detected A Blood Type A Positive Antibody Screen Negative 08/01/23 08:36 WBC 18.0 H RBC 3.46 L Hgb 10.4 L Hct 32.3 L MCV 93.4 MCH 30.1 MCHC 32.2 RDW 15.0 H Plt Count 316 MPV 10.5 H Immature Gran % (Auto) 0.8 H Neut % (Auto) 85.5 H Lymph % (Auto) 5.3 L [place] % (Auto) 8.3 Eos % (Auto) 0.0 Baso % (Auto) 0.1 L Lymph # (Auto) 0.95 [place] # (Auto) 1.5 H Eos # (Auto) 0.0 Baso # (Auto) 0.0 Abs Immat Gran (auto) 0.15 H Absolute Neuts (auto) 15.4 H Absolute Nucleated RBC 0.0 Nucleated RBC % 0.0 Sodium 135 Potassium 3.9 Chloride 106 Carbon Dioxide 23 Anion Gap 6 L BUN 8 Creatinine 0.90 Estim Creat Clear Calc 102 Estimated GFR > 60 Glucose 97 Uric Acid 7.1 H Calcium 6.9 L Magnesium 7.4 H Total Bilirubin 0.3 AST 24 ALT 19 Alkaline Phosphatase 166 H Total Protein 7.0 Albumin 3.6 L U Random Total Protein Ur 24 Hour Volume Urine Creatinine Ur Creatinine 24 Hour Ur Total Protein 24 Hr RPR C. trachomatis (PCR) N. gonorrhoeae (PCR) T. vaginalis (PCR) Blood Type Antibody Screen OB - PN A/P Time Spent With Patient Time: Total time spent is greater than 50% in coordination of care (as do
--- NOTE | 2023-08-01 14:39 | WPDANESEPP ---
Anes - Eval Pre Procedure Procedure: labor epidural Date/Time: 08/01/23 14:39 Preop Diagnosis: labor pain Pre Op Diagnosis: Elevated Blood Pressures Patient Data Age: 17 Gender: F Height: 1.83 m Weight: 83 kg Last Vital Signs Temp 36.8 C 08/01/23 13:28 Pulse 80 08/01/23 14:30 Resp 20 08/01/23 11:00 BP 135/101 H 08/01/23 14:30 Pulse Ox 97 08/01/23 14:37 O2 Del Method Room Air 07/31/23 18:40 Allergies Allergy/AdvReac Type Severity Reaction Status Date / Time No Known Allergies Allergy Verified 07/31/23 18:57 Home Medications Medication Instructions Recorded Confirmed Type No Home Medications 07/30/23 07/30/23 History Laboratory Tests 07/30/23 07/30/23 07/31/23 14:58 14:58 16:00 WBC 16.2 H K/mm3 (4.5-10.0) RBC 2.97 L M/mm3 (4.2-5.4) Hgb 9.1 L g/dL (12.0-15.0) Hct 27.5 L % (37.0-47.0) MCV 92.6 fl (80-100) MCH 30.6 pg (26-34) MCHC 33.1 g/dl (32-36) RDW 14.8 H % (11.5-14.5) Plt Count 282 k/mm3 (150-375) MPV 10.9 H fl (7.4-10.4) Immature Gran % (Auto) 0.6 H % (0-0.5) Neut % (Auto) 79.5 H % (45.5-73.1) Lymph % (Auto) 6.9 L % (18.3-44.2) [place] % (Auto) 12.9 H % (2.6-8.5) Eos % (Auto) 0.0 % (0-4.4) Baso % (Auto) 0.1 L % (0.2-1.2) Lymph # (Auto) 1.12 K/mm3 (0.9-3.2) [place] # (Auto) 2.1 H K/mm3 (0.1-0.6) Eos # (Auto) 0.0 K/mm3 (0-0.3) Baso # (Auto) 0.0 K/mm3 (0.0-0.1) Abs Immat Gran (auto) 0.09 H K/mm3 (0.00-0.031) Absolute Neuts (auto) 12.9 H K/mm3 (1.3-6.7) Absolute Nucleated RBC 0.0 K/mm3 (0.0-0.012) Nucleated RBC % 0.0 % (0.0-0.2) Sodium 132 L mmol/L (134-143) Potassium 3.7 mmol/L (3.4-5.0) Chloride 105 mmol/L (98-107) Carbon Dioxide 23 mmol/L (22-30) Anion Gap 4 L mmol/L (8-16) BUN 8 mg/dL (8-21) Creatinine 0.90 mg/dL (0.7-1.0) Estim Creat Clear Calc 102 ml/min Estimated GFR > 60 (59 - ) Glucose 102 mg/dL (65-110) Uric Acid 7.0 H mg/dL (3.0-5.9) Calcium 7.1 L mg/dL (8.9-10.7) Magnesium Total Bilirubin 0.2 mg/dL (0.2-1.3) AST 20 U/L (14-36) ALT 16 U/L (6-35) Alkaline Phosphatase 136 H U/L (45-116) Total Protein 6.0 L g/dL (6.3-8.6) Albumin 3.1 L g/dL (3.7-5.6) U Random Total Protein 18 mg/dL Ur 24 Hour Volume 3250 ml 3250 ml Urine Creatinine 49.5 mg/dL Ur Creatinine 24 Hour 1.6 gm/24 (0.8-1.8) Ur Total Protein 24 Hr 585 H mg/24hr (28-141) RPR C. trachomatis (PCR) N. gonorrhoeae (PCR) T. vaginalis (PCR) Blood Type Antibody Screen 07/31/23 07/31/23 08/01/23 18:18 18:19 00:02 WBC 15.5 H K/mm3 (4.5-10.0) RBC 3.25 L M/mm3 (4.2-5.4) Hgb 9.9 L g/dL (12.0-15.0) Hct 30.3 L % (37.0-47.0) MCV 93.2 fl (80-100) MCH 30.5 pg (26-34) MCHC 32.7 g/dl (32-36) RDW 14.9 H % (11.5-14.5) Plt Count 304 k/mm3 (150-375) MPV 11.0 H fl (7.4-10.4) Immature Gran % (Auto) 0.8 H % (0-0.5) Neut % (Auto) 89.6 H % (45.5-73.1) Lymph % (Auto) 4.8 L % (18.3-44.2) [place] % (Auto) 4.6 % (2.6-8.5) Eos % (Auto) 0.0 % (0-4.4) Baso % (Auto) 0.2 % (0.2-1.2) Lymph # (Auto) 0.74 L K/mm3 (0.9-3.2) [place] # (Auto) 0.7 H K/mm3 (0.1-0.6) Eos # (Auto) 0.0 K/mm3 (0-0.3) Baso # (Auto) 0.0 K/mm3 (0.0-0.1) Abs Immat Gran (auto) 0.13 H K/mm3 (0.00-0.031)
--- NOTE | 2023-08-01 15:26 | PM.OBPRVD ---
OB - Delivery Note Procedure Delivery date: 08/01/23 Procedure: Induction method: AROM and Per Pitocin Protocol Delivery monitor: External FHT and External Uterine Route of delivery: Episiotomy description: None Laceration Description: None Quantitative Blood Loss (ml): 90 Disposition: Floor Baby Date of : 08/01/23 Time of : 15:13 Weeks of gestation at delivery: 35 gender: Female
[2023-08-01] MEDS: OXYTOCIN 30 UNITS/NS 500 ML 30 UNITS/500 ML BAG 75 UNITS IV CONT (15:42)
[2023-08-01 16:06] LABS: Magnesium 7.3 mg/dL (1.6-2.3)
--- NOTE | 2023-08-01 17:58 | ADMGEN ---
This patient, Sanya Allen, was admitted to OB 2nd Floor Room 286-00. Patient/family oriented to hospital policies and general routines including ID bracelet, bed and alarms, visiting hours, pain management, procedures, bathroom and other care routines, personal items, smoking policy, room service/diet, and visiting hours. Information on how to activate the Rapid Response Team has been discussed. Patient/Family are encouraged to report perceived risks to care and to ask questions if they do not understand what they are told or what they should do.
--- NOTE | 2023-08-01 17:58 | PC.NURSE ---
Patient transferred to post room #286 via [id number]. Support person present. Oriented to unit, room, information board, rooming in, admission packet and security measures. Patient verbalizes understanding.
[2023-08-02] VITALS (7 sets, daily range): BP systolic 131–142; BP diastolic 87–97; PULSE 58–82; RESP 16–18; TEMP 36.6–37.2; O2SAT 99–100
[2023-08-02 04:42] LABS: Hemoglobin 9.1 g/dL (12.0-15.0)
[2023-08-02] MEDS: MAGNESIUM SULF 20GM/WATER500ML 500 ML 50 MG IV CONT (07:28)
--- NOTE | 2023-08-02 07:40 | WPDANLDPN2 ---
Anes-Prog Note L&D Date/Time: 08/02/23 07:40 Comfortable throughout: labor and delivery Neuraxial method: epidural Epidural/Spinal procedure site: clean & non-tender Neuro status: Neuro function grossly intact. Cardiovascular status: normal Respiratory status: normal Airway patency: baseline Mental status: baseline Post-Op hydration status: normal Vital Signs: Last Vital Signs Temp 36.8 C 08/02/23 04:40 Pulse 75 08/02/23 04:40 Resp 18 08/02/23 04:40 BP 131/94 H 08/02/23 04:40 Pulse Ox 100 08/01/23 17:31 O2 Del Method Room Air 08/02/23 02:58 Pain score (VAS): 11/23 I/O: Intake & Output 08/01/23 08/01/23 08/02/23 15:59 23:59 07:59 Intake Total 1999 500 1979 Output Total 1175 1999 Balance 825 500 -20 Post-procedural complaints: none Patient feedback: Patient satisfied with anesthetic care.
[2023-08-02 08:06] LABS: Rapid Plasma Reagin Reactive (NonReactive)
[2023-08-02] MEDS: LABETALOL HCL 100 MG TABLET 400 MG PO ×2 (10:03→21:40)
--- NOTE | 2023-08-02 10:37 | PCCCNOTE ---
Received referral. Spoke to RN and met with pt. Pt. lives with her father, mother and sister. She plans to return home at discharge with . Father of is involved and supportive. Father of lives with his family as well. Pt. has no concerns regarding this relationship. She states having all needed items to care for at discharge home. She is already in contact with WIC. She indicates as first child and has no history with DCFS. She denies any drug/alcohol use. Offered additional resources and she accepted same. Encouraged she contact any/all of interest. RN aware of above and states no other concerns. No further care coordination needs indicated at this time.
[2023-08-02] MEDS: LACTATED RINGERS 1,000 ML 75 ML IV CONT (12:00)
[2023-08-02] MEDS: ACETAMINOPHEN 325 MG TABLET 650 MG PO (16:26)
[2023-08-02] MEDS: DOCUSATE SODIUM 100 MG CAPSULE PO (16:27)
[2023-08-02] MEDS: POLYSACCHARIDE IRON COMPLEX 150 MG CAPSULE PO (16:28)
[2023-08-03] VITALS (7 sets, daily range): BP systolic 135–161; BP diastolic 90–109; PULSE 55–72; RESP 16–18; TEMP 36.7–37.4; O2SAT 98–100
--- NOTE | 2023-08-03 08:04 | PM.OBPNVD ---
OB - PN: Subj Subjective Date/time seen: 08/03/23 08:04 preeclampsia. s/p magnesium sulfate continue to monitor blood pressure pt denies headache, visual changes, epigastric pain baby reactive RPR Interval history: Denies headache, blurry vision, epigastric pain. Denies onset of marked swelling / edema. Patient's family has noticed her face is more swollen. OB - PN: Obj Data Labs 08/02/23 03:07 08/01/23 08:36 Labs: Laboratory Results - last 24 hr 07/31/23 18:18 RPR Reactive A OB - PN A/P Plan day: 2 Plan: routine care Time Spent With Patient Time: Total time spent is greater than 50% in coordination of care (as documented) at patient's floor/unit and/or counseling patient: Review of Systems Review of Systems: All systems reviewed & are unremarkable except as noted in HPI and below Exam Const: General: cooperative and healthy appearing Resp: Effort & Inspection: normal respiratory effort Cardio: Rate: regular rate Rhythm: regular rhythm GI: Other: soft Skin: General skin exam: normal color Extrem: Right lower extremity: edema Left lower extremity: edema Psych: Appearance: grossly normal
[2023-08-03] MEDS: LABETALOL HCL 100 MG TABLET 400 MG PO ×2 (09:41→21:15)
[2023-08-03] MEDS: POLYSACCHARIDE IRON COMPLEX 150 MG CAPSULE PO ×2 (09:41→16:42)
[2023-08-03] MEDS: ACETAMINOPHEN 325 MG TABLET 650 MG PO ×2 (12:24→21:15)
[2023-08-03] MEDS: NIFEdipine 30 MG TAB.ER.24 PO (16:38)
[2023-08-04] VITALS (8 sets, daily range): BP systolic 131–148; BP diastolic 90–103; PULSE 61–67; RESP 16–18; TEMP 36.9–37.3; O2SAT 100
--- NOTE | 2023-08-04 08:22 | PM.OBPNVD ---
OB - PN: Subj Subjective Date/time seen: 08/04/23 08:22 Interval history: Denies headache, blurry vision, epigastric pain. Denies onset of marked swelling / edema. Patient's family has noticed her face is more swollen. Patient comments: no complaints, pain well controlled and tolerating diet OB - PN: Obj Data Labs 08/02/23 03:07 08/01/23 08:36 OB - PN A/P Plan day: 3 Plan: routine care and discharge home Comments: Continue observation, elevated blood pressures intermittently, concerned about preeclampsia. Time Spent With Patient Time: Total time spent is greater than 50% in coordination of care (as documented) at patient's floor/unit and/or counseling patient: Exam Const: General: comfortable and no acute distress Resp: Effort & Inspection: normal respiratory effort Auscultation: no rales, no rhonchi and no wheezes Cardio: Rate: regular rate Heart sounds: no click, no murmurs and no rubs GI: GI Palp: Yes Soft to palpation and No Tenderness to palpation present (GI) Auscultation: normal bowel sounds Extrem: General: normal to inspection, no pedal edema and no calf tenderness
[2023-08-04] MEDS: LABETALOL HCL 100 MG TABLET 400 MG PO ×2 (08:32→20:49)
[2023-08-04] MEDS: POLYSACCHARIDE IRON COMPLEX 150 MG CAPSULE PO ×2 (08:32→17:11)
[2023-08-04] MEDS: DOCUSATE SODIUM 100 MG CAPSULE PO ×2 (08:32→17:11)
[2023-08-04] MEDS: NIFEdipine 30 MG TAB.ER.24 PO (08:34)
[2023-08-04] MEDS: ACETAMINOPHEN 325 MG TABLET 650 MG PO (08:45)
[2023-08-05 00:10] VITALS: BP 139/90
[2023-08-05 04:41] VITALS: BP 144/92
--- NOTE | 2023-08-05 07:46 | PM.OBPNVD ---
OB - PN: Subj Subjective Date/time seen: 08/05/23 07:46 Interval history: Denies headache, blurry vision, epigastric pain. pp day 4 blood pressure stable on medication continue baby staying for weight gain pt to be d/c to no care bed OB - PN: Obj Data Labs 08/02/23 03:07 08/01/23 08:36 OB - PN A/P Plan day: 4 Plan: routine care and discharge home Time Spent With Patient Time: Total time spent is greater than 50% in coordination of care (as documented) at patient's floor/unit and/or counseling patient: Review of Systems Review of Systems: All systems reviewed & are unremarkable except as noted in HPI and below Exam Const: General: cooperative and healthy appearing Chest: Chest palpation & inspection: normal inspection of the chest Resp: Effort & Inspection: normal respiratory effort GI: Inspection: normal to inspection Other: soft Skin: General skin exam: normal color Extrem: Right lower extremity: normal to inspection Left lower extremity: normal to inspection Psych: Appearance: grossly normal
--- NOTE | 2023-08-05 07:51 | PM.OBDSVD ---
DS: Admitting Diagnosis Discharge Date 08/05/23 Admitting Diagnosis preeclampsia DS: Discharge Diagnosis Discharge Diagnosis (1) Preeclampsia, severe: Code(s): O14.10 - Severe pre-eclampsia, unspecified trimester Status: Acute (2) Vaginal delivery: Code(s): O80 - Encounter for full-term uncomplicated delivery Status: Acute OB - DS: Summary OB Procedures : PIH Mgmt OB Procedures Intrapartum: Spontaneous Vag Delivery OB Procedures: : None Time Spent with Patient Time attestation: Total time spent providing and/or coordinating discharge services: DS: Data Data Completed and Pending Completed studies during hospitalization: Pending at discharge 08/01/23 15:15 Surgical [PTH] Routine Discharge Plan Discharge Attending physician on discharge: Jessica Ramírez Discharging Clinician: Tammy Craig Patient Disposition: Home, Self-Care Activity: pelvic rest Diet: regular Patient Instructions: Antibiotic Form Stand Alone Forms: General Discharge Information Follow-up/Referrals: Jessica Ramírez MD [Physician] - 4 Weeks Discharge Medications: New labetalol 100 mg Tablet 400 mg PO Q12H Qty: 60 0RF ibuprofen 600 mg Tablet 600 mg PO Q6H PRN (Reason: Cramping) Qty: 30 0RF nifedipine [Procardia XL] 30 mg Tablet Extended Release 24hr 30 mg PO QAM Qty: 30 0RF No Action No Home Medications Date of admission: 07/31/23 17:30 Primary Care Provider: PHYSICIAN,CHILD DEVELOPMENT INSTRUCTOR Admitting Provider: Jessica Ramírez Attending physician on admission: Jessica Ramírez Condition: Stable
[2023-08-05 08:00] VITALS: PULSE 71; RESP 16; O2SAT 100
[2023-08-05 08:30] VITALS: BP 135/101; PULSE 69; RESP 16; TEMP 36.8; O2SAT 100
[2023-08-05] MEDS: DOCUSATE SODIUM 100 MG CAPSULE PO (10:20)
[2023-08-05] MEDS: POLYSACCHARIDE IRON COMPLEX 150 MG CAPSULE PO (10:20)
[2023-08-05 10:21] VITALS: PULSE 69
[2023-08-05] MEDS: LABETALOL HCL 100 MG TABLET 400 MG PO (10:21)
[2023-08-05] MEDS: NIFEdipine 30 MG TAB.ER.24 PO (10:21)
[2023-08-05 12:18] VITALS: BP 136/93; PULSE 71; RESP 16; TEMP 37.6; O2SAT 100
[2023-08-05] MEDS: TETANUS,DIPHTHERIA,AC PERTUSSIS ADULT (0.5 ML) BOOSTRIX IM (16:59)
--- NOTE | 2023-08-05 17:41 | PC.NURSE ---
1715-Patient discharged to [facility] (no care bed).
[2023-08-06 12:16] LABS: Treponema pallidum Ab FTA ABS Reactive (Nonreactive)
[2023-08-16 14:32] LABS: Reference Lab Test Result Reactive (Abnormal)
== END 2023-08-05 17:15 | disposition home or self-care (01) | DRG 560 ==
LOC: ANHOBOP 16:10 → ANHOBPP 16:10 → ANHLDR 07-31 17:46 → ANHOB2 08-01 18:00
PROVIDERS: Admitting Provider Obstetrics & Gynecology; Visit Provider Obstetrics & Gynecology
DX: O14.14 Severe pre-eclampsia complicating childbirth (principal); Z37.0 Single live birth; O70.0 First degree perineal laceration during delivery; Z3A.35 35 weeks gestation of pregnancy
CPT/HCPCS: 36415; 76816; 76819; 80053; 81001; 81050; 82570; 83735; 84112; 84156; 84550; 85014; 85018; 85025; 86592; 86593; 86780; 86850; 86900; 86901; 87086; 87491; 87591; 87661; 88307; 90715; 96365; 96366; 96372; 96375; A9270; G0378; G0379; J0290; J0456; J0702; J2405; J2590; J2795; J3475; J7120

== ENCOUNTER 2023-08-08 16:00 | Outpatient (CLI) | payer OTHER, SELFPAY ==
[2023-08-08] MEDS: PENICILLIN G BENZATHINE 2,400,000 UNITS/4 ML SYRINGE 2400000 UNITS IM (18:23)
== END 2023-08-08 16:01 | disposition home or self-care (01) ==
PROVIDERS: Visit Provider Obstetrics & Gynecology
DX: Z23 Encounter for immunization (principal)
CPT/HCPCS: 96372; J0561

== ENCOUNTER 2025-09-04 11:01 | Emergency (ER) | payer OTHER, SELFPAY ==
[2025-09-04 11:06] VITALS: BP 128/76; PULSE 93; RESP 16; TEMP 37; O2SAT 100
--- OUTSIDE RECORDS SUMMARY | 2025-09-04 14:04 | XMS_ITS | Clinical Summary ---
Author Organization [facility] Address [address] [place] [address] Care Team Providers Care Senior Environmental Scientist Name Role Phone Unavailable Primary Care Provider Unavailabl e Source Comments [facility],non-owned Affiliates and Associated Physician Practices is amultiple site organization consisting of ambulatory clinics and hospital sitesin [place], [place], [place] and [place]. This disclosure is being madepursuant to the Care Everywhere program and may not contain all information available regarding this patient. Last updated 18.[facility] Allergies No known active allergies Medications * Be aware that medications may not be up to date on this document. Alwaysverify current medications with the patient. ondansetron, disintegrating, (Zofran ODT) 4 MG tablet Take 1 (one) tablet by mouth every 6 hours as needed for Nausea/Vomiti ng Allow tablet to dissolve on the tongue 15 tablet 02/20/2025 Active Social History Tobacco Use Types Packs/Day Years Used Date Smoking Tobacco: Never Smokeless Tobacco: Never Tobacco Cessation:Counseling Given: Not Answered Alcohol Use Standard Drinks/Week Comments Not Currently 0 (1 standard drink = 0.6 oz pur e alcohol) Comments No Sex and Gender Information Value Date Recorded Sex Assigned at Not on file Legal Sex Female 11:57 AM CDT Gender Identity Not on file Sexual Orientation Not on file Last Filed Vital Signs Vital Sign Reading Time Taken Comments Blood Pressure 135/47 03/23/2025 10:27 AM CDT Pulse 61 03/23/2025 10:27 AM CDT Temperature 36.4 C (97.6 F) 03/23/2025 10:27 AM CDT Respiratory Rate 18 03/23/2025 10:27 AM CDT Oxygen Saturation 99% 03/23/2025 10:27 AM CDT Inhaled Oxygen Concentration - - Weight 68 kg (150 lb) 03/23/2025 10:27 AM CDT Height 182.9 cm (6') 03/23/2025 10:27 AM CDT Body Mass Index 20.34 03/23/2025 10:27 AM CDT Plan of Treatment Health Maintenance Due Date Last Done Comments HIV SCREENING 2018 HPV VACCINE (1 - 3-dose series) 2018 MENINGOCOCCAL (Group B) VACCINE SHARED DECISION-MAKING (1 of 2 - Standard) 2019 HEPATITIS C SCREENING 10/24/2021 DTAP/TDAP/TD VACCINES (1 - Tdap) 2022 HEPATITIS B VACCINE (1 of 3 - 19+ 3-dose series) 2022 PAP SMEAR 2024 DEPRESSION SCREENING 11/14/2024 COVID-19 VACCINE ( - season) 2025 INFLUENZA VACCINE (#1) 2025 4, 07/24/2011, 09/05/2006, Additional history exists CHLAMYDIA/GONORRHEA SCREENING 03/23/2026 03/23/2025 ZOSTER VACCINE (1 of 2) 2053 HIB VACCINE Aged Out No longer eligi ble based on patient's age to complete this topic MENINGOCOCCAL GROUPS A/C/Y/W VACCINE Aged Out No longer eligible based on patient's age to complete this topic PNEUMOCOCCAL VACCINE Aged Out No long er eligible based on patient's age to complete this topic Procedures Procedure Name Priority Date/Time Associated Diagnosis Comments CHLAMYDIA AND N. GONORRHOEAE CA STAT 03/23/2025 10:53 AM CDT from Last 3 Months or Most Recently Relevant to Health Maintenance Results * CHLAMYDIA AND N. GONORRHOEAE CA (03/23/2025 10:53 AM CDT) Chlamydia by CA NEGATIVE NEGATIVE 03/24/2025 6:30 AM CDT [facility] Neisseria gonorrhoeae CA NEGATIVE NEGATIVE 03/24/2025 6:30 AM CDT [facility] Microbiology ENTIRE VAGINA / Unknown Collection / Unknown 03/23/2025 10:53 AM CDT 03/23/2025 11:03 AM CDT Rebecca Rasheed PA-C LAB - MICROBIOLOGY OR DERABLES Final Result [facility] [address] [place] [address], [facility] [phone] from Last 3 Months or Most Recently Relevant to Health Maintenance Insurance * Guarantor: SANYA LAWRENCE Account Type Relation to Patient Date of Phone Billing Address Personal/Family Spouse
== END 2025-09-04 13:25 | disposition left against medical advice (07) ==
LOC: ANHED 12:52
DX: R10.9 Unspecified abdominal pain (principal)
CPT/HCPCS: 99199